=== PATIENT | male | born 1995 | race Caucasian/White ===

== ENCOUNTER 2021-10-22 23:18 | Emergency (ER) | payer OTHER, SELFPAY ==
[2021-10-22 23:19] VITALS: BP 160/93; PULSE 90; RESP 16; TEMP 36.9; O2SAT 100
--- NOTE | 2021-10-23 00:33 | EKG12_ITS ---
Test Reason : HR Blood Pressure : / mmHG Vent. Rate : 079 BPM Atrial Rate : 079 BPM P-R Int : 168 ms QRS Dur : 076 ms QT Int : 376 ms P-R-T Axes : 056 048 035 degrees QTc Int : 431 ms Somatic/Motion Artifact Normal sinus rhythm with sinus arrhythmia Confirmed by GRACIELA WING, LUCY ([id number]), state editor BRYAN ESCALANTE ([id number]) on 10/24/2021 10:52:25 AM Referred By: LUCIANO Confirmed By:LUCY OWENS MD
--- NOTE | 2021-10-23 00:40 | RAD_ITS ---
STUDY: X-RAY CHEST REASON FOR EXAM: Male, 26 years old. chest pain TECHNIQUE: Single AP portable view of the chest. COMPARISON: None. FINDINGS: The lungs are clear and expanded. There is no demonstrated pleural abnormality. Normal size heart. Normal mediastinum and rose. Normal visualized pulmonary arteries. Normal visualized aortic arch and descending thoracic aorta. Normal visualized thoracic spine. Normal visualized ribs, clavicles, and shoulders. There is no demonstrated abnormality of the visualized soft tissue structures of the upper abdomen. RAD/Chest 1 View (Portable) IMPRESSION: Normal x-ray examination of the chest. Electronically Signed: Claudia Worrell MD at 1:08 EST Tel , Service support ,
--- NOTE | 2021-10-23 00:41 | EDS_ITS ---
HPI History of Present Illness Chief Complaint: Palpitations Informant: patient Onset/Context/Timing Onset: Today Activity at onset: sudden Timing: Intermittent Quality: Negative for Aching, Burning, Dull, Heaviness, Indigestion, Pain, Pressure, Sharp, Stabbing and Tightness Current Severity: Gone Maximum Severity: Mild Worsened By: Nothing Relieved By: Nothing Narrative Narrative: 26-year-old male no seen past medical history. No recent surgery or travel. No chest pain. Says tonight he was lying in bed his heart rate jumped up around 137. Lasted 5 to 10 minutes and it resolved. He has had episodes where his heart flutters before but never lasted this long. Currently symptom- free. He denies any chest pain or shortness of breath. Prior Similar Symptoms: No Recent Illness/Hospitalization: No CVD Risk Factors: Negative for Hypertension and Diabetes PE Risk Factors: Negative for Recent Travel/Surgery, Recent Immobilization, Prior DVT or PE, Cancer and OCP + Smoking + >/=35 TAD Risk Factors: Negative for Marfan's Syndrome and Hypertension PFSH PFSH Medical History no medical history no medical history Social History Smoking Status: Never smoker ROS ROS ED ROS Narrative Denies recent illness. Review of Systems ROS Unobtainable: Denies due to encephalopathy Constitutional Constitutional ED: Denies fever(s) Eyes Eyes: Denies none ENT ENT ED: Denies ear pain Cardiovascular Cardiovascular: Reports as per HPI, palpitations and racing heartbeat; Denies chest pain Respiratory/Chest Respiratory/Chest: Denies dyspnea Gastrointestinal Gastrointestinal: Denies abdominal pain Genitourinary Genitourinary ED: Denies dysuria Musculoskeletal Musculoskeletal: Denies myalgias Integumentary Denies rash Neurologic Neurologic: Denies headache(s) Psychiatric Psychiatric: Denies depression Endocrine Endocrinology: Denies polyuria Hematologic/Lymphatic Hematologic/Lymphatic: Denies easy bruising Allergic/Immunologic Allergic/Immunologic ED: Denies urticaria EXAM Physical Exam Narrative Exam Narrative: 26-year-old male no acute distress vital signs stable afebrile. Pulse ox 9% on room air no signs hypoxia. Currently symptom-free with a heart rate around 80-90. HEENT exam normal. Neck nontender. No thyromegaly. Lungs clear to auscultation bilaterally. Heart regular rhythm rate about 80 no murmur. Chest were nontender. Abdomen soft nontender. Obese. Moving all 4 extremities. Calves nontender no edema. Neurologically awake and alert with no focal motor deficits. Const Vital Signs: 10/22/21 23:19 Temperature 98.4 F Temperature Source Oral Pulse Rate 90 Respiratory Rate 16 Blood Pressure 160/93 H Blood Pressure Mean 115 Pulse Ox 100 Oxygen Delivery Method Room Air Positive well nourished and obese; Negative for cachectic, contractures or unkempt General Appearance ED: NAD; Negative for unkempt, cachectic, contractures or pallor Nutritional Appearance: obese; Negative for cachectic HEENT Reports moist mucous membranes normocephalic and atraumatic Eyes PERRL and EOMs intact bilaterally Neck no lymphadenopathy, supple and no JVD General: Negative for tenderness Chest Wall inspection of chest normal and palpation of chest normal Chest: Negative for tenderness Resp normal respiratory effort and clear to auscultation bilaterally Effort and Inspection: respiratory distress Auscultation: Negative for rales, rhonchi or wheezes Cardio regular rate, regular rhythm, S1 normal heart sound, S2 normal heart sound and no murmurs Rate: Negative for bradycardia or tachycardic GI normal to inspection, nondistended, normoactive bowel sounds, soft to palpation, non-tender, non-distended and no masses Back/Spine no CVA tenderness Extremity normal to inspection General Extremety ED: Negative for edema or tenderness General Extremity: Negative for edema Neuro oriented x3 Sensorium / Orientation: awake, alert, oriented to person, oriented to place and oriented to time Motor Exam: strength 5/5 throughout Psych mental status grossly normal Appearance: Negative for unkempt Skin no rashes or lesions noted and no wounds General Skin Exam: Negative for jaundice or pallor MDM MDM MDM Narrative Medical decision making narrative: 26-year-old male with palpitations. He does drink red bull frequently and had 2 today. He will be worked up for palpitations. Currently his exam is normal his vital signs are normal and his heart rates around 80. Repeat exam patient is doing well at 1:40 AM. He has had no recurrence of his symptoms. Currently his vital signs are stable. He and I discussed his test results. 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 Lab Data Attestation: I reviewed the patient's lab results. Lab results narrative: CBC warmth normal white count at 9. Hemoglobin 14. Electrolytes normal gap of 5 normal BUN and creatinine glucose 150 troponin normal at 3 Labs: Laboratory Results - last 24 hr 10/22/21 10/22/21 23:50 23:50 WBC 9.0 RBC 4.65 Hgb 14.1 Hct 42.3 MCV 91.0 MCH 30.3 MCHC 33.3 RDW Std Deviation 40.6 RDW Coeff of Qamar 12.3 Plt Count 270 MPV 10.1 Immature Gran % (Auto) 0.100 Neut % (Auto) 50.1 Lymph % (Auto) 38.5 [place] % (Auto) 7.7 Eos % (Auto) 3.2 Baso % (Auto) 0.4 Absolute Neuts (auto) 4.5 Absolute Lymphs (auto) 3.45 Nucleated RBC % 0 Sodium 141 Potassium 3.8 Chloride 107 Carbon Dioxide 29.0 Anion Gap 5 BUN 13 Creatinine 0.98 Estim Creat Clear Calc 198.19 Est GFR (MDRD) Af Amer 117 Est GFR (MDRD) Non-Af 97 BUN/Creatinine Ratio 13.3 Glucose 150 H Calcium 8.7 Troponin I High Sens 3 TSH 8.82 H Radiography Chest X-Ray - ED: 1 View, Read by ED Physician, Normal, Heart, Lungs, Mediastinum, Bony Structures and No Acute Disease Diagnostic Testing: Clinical Impression(s) from Imaging Studies Chest X-Ray 10/23/21 00:40 IMPRESSION: Normal x-ray examination of the chest. Electronically Signed: Claudia Worrell MD at 1:08 EST Tel , Service support , Chest x-ray portable 1 view interpreted by myself and the radiologist shows no acute abnormality. Rhythm Strip Rhythm Strip: Sinus Rhythm Rate: 79 Ectopy: None EKG Initial EKG: Attestation: I personally reviewed and interpreted this EKG as follows: Interpretation: Sinus Rhythm and No Acute Injury Pattern Comments: Normal sinus rhythm rate of 80 no acute signs of NV or ischemia. No old EKG available for comparison. Discharge Plan Triage Chief Complaint: Palpitations ED Provider: Caleb Toledo Dx/Rx/DC Orders Clinical Impression: Heart palpitations Instructions: ED Palpitations Primary Care Provider: Care Physician,No Primary Referrals: Care Physician,No Primary [Primary Care Provider] - Activity Restrictions/Additional Instructions: Follow-up with your primary care physician in [place] to consider being placed on either a Holter or event monitor to evaluate your heart for the palpitations. Also tonight your TSH which is thyroid-stimulating hormone was elevated. You just need to have your thyroid test rechecked. No more drinking of the red bull or energy drinks they are high in sugar and caffeine and may cause accelerated heart rate. Disposition Disposition: Home, Self Care
[2021-10-23 00:49] LABS: Absolute Lymphocyte Count 3.45 X10^3/uL (0.83-4.51); Absolute Neutrophil Count 4.5 X10^3/uL (2.0-7.7); Basophil# 0.04 X10^3/uL; Basophil% 0.4 % (0-1); Eosinophil# 0.29 X10^3/uL; Eosinophils% 3.2 % (0-5); Hematocrit 42.3 % (40-54); Hemoglobin 14.1 g/dL (13.0-16.5); Lymphocyte # 3.45 X10^3/ul (0.83-4.51); Lymphocyte % 38.5 % (19-41); Mean Corp Hgb Conc 33.3 g/dL (32-36); Mean Corpuscular Hgb 30.3 pg (27.0-32.0); Mean Platelet Vol. 10.1 fl (6.2-12.0); Monocyte# 0.69 X10^3/uL; Monocyte% 7.7 % (0-10); NRBC Flagged by Analyzer 0 % (0-5); Neutrophil # 4.47 X10^3/uL (2.7-7.7); Neutrophil % 50.1 % (47-70); Platelet Count 270 K/mm3 (150-450); RBC Distribution Width CV 12.3 % (11.6-14.6); RBC Distribution Width SD 40.6 fl (35.1-43.9); Red Blood Count 4.65 M/mm3 (4.6-6.2)
[2021-10-23 01:10] LABS: Anion Gap 5 (5-15); BUN 13 mg/dL (7-18); BUN/Creat Ratio 13.3 RATIO (10-20); Calcium,Total 8.7 mg/dL (8.5-10.1); Chloride 107 mmol/L (98-107); Creatinine, Serum 0.98 mg/dL (0.70-1.30); EST Glomerular Filtration Rate 97 mL/min (>60); Est Glom Filt Rate - Afr Amer 117 mL/min (>60); Estimated Creatinine Clearance 198.19 ml/min; Glucose 150 mg/dL (74-106); Potassium 3.8 mmol/L (3.5-5.1); Sodium Level 141 mmol/L (136-145); Thyroid Stim Hormone (TSH) 8.82 uIU/mL (0.358-3.74); Troponin-I HS 3 pg/mL (3.0-78.0)
[2021-10-23 01:46] VITALS: BP 138/76; PULSE 76; RESP 16; O2SAT 98
== END 2021-10-23 01:49 | disposition home or self-care (01) ==
PROVIDERS: Emergency Provider Emergency Medicine
DX: R00.2 Palpitations (principal)
CPT/HCPCS: 71045; 80048; 84443; 84484; 85025; 93005; 99284; A4216